=== PATIENT | male | born 1960 | race Caucasian/White ===

== ENCOUNTER → 2022-10-21 19:22 | Outpatient (CLI) | payer BC, SELFPAY ==
[2022-10-21 18:19] LABS: Basophils # 0.1 K/mm3 (0-0.2); Basophils % 1.1 % (0.1-2.0); Eosinophils # 0.2 K/mm3 (0.0-0.4); Eosinophils % 2.5 % (0.1-12.0); Hematocrit 50.5 % (42.0-52.0); Hemoglobin 16.3 g/dL (14.1-18.0); Lymphocytes % 34.1 % (10-50); Mean Corpuscular HGB Conc 32.3 g/dL (31.8-35.4); Mean Corpuscular Hemoglobin 30.7 pg (27.0-31.2); Mean Corpuscular Volume 95.1 fl (80-94); Mean Platelet Volume 9.5 fl (7.4-10.4); Monocytes # 0.4 K/mm3 (0.1-1.0); Monocytes % 7.5 % (1.7-9.3); Neutrophils # 3.2 K/mm3 (1.8-7.8); Neutrophils % 54.9 % (37.0-80.0); Platelet Count 186 K/mm3 (142-424); Red Blood Count 5.31 M/mm3 (4.60-6.20); Red Cell Distribution Width 13.3 % (11.5-17.5); White Blood Count 5.8 K/mm3 (4.8-10.8)
[2022-10-21 19:03] LABS: Hemoglobin A1C 8.7 % (4.0-6.0)
[2022-10-21 19:22] LABS: Alanine Aminotransferase 81 U/L (12-78); Albumin Level 4.5 g/dl (3.5-5.0); Albumin/Globulin Ratio 1.3 (1.1-1.8); Alkaline Phosphatase 80 U/L (38-126); Aspartate Amino Transferase 93 U/L (17-59); Bilirubin,Total 0.4 mg/dl (0.2-1.3); Blood Urea Nitrogen 15 mg/dl (9-20); Calcium 9.7 mg/dl (8.4-10.2); Carbon Dioxide 25 mmol/L (22.0-30.0); Chloride 106 mmol/L (98-107); Estimated Glomerular Filt Rate 115 ml/min (>60); GFR (African American) 140 ML/MIN (>60); Globulin 3.5 g/dL (1.3-3.2); Glucose 132 mg/dl (74-100); Sodium 138 mmol/L (136-145)
[2022-10-21 19:36] LABS: Microalbumin/Creatinine Ratio 22.4
[2022-10-21 19:37] LABS: Creatinine,Urine Random 54 mg/dL (Not Estab.)
[2022-10-21 19:38] LABS: 25-OH Vitamin D, Total 34.4 ng/mL (30-100)
[2022-10-21 19:51] LABS: Prostate Specific Ag Screen 1.2 ng/ml (0.0-4.0); Thyroid Stimulating Hormone 2.09 uIU/mL (0.465-4.68)
== END ==
PROVIDERS: PCP Nurse Practitioner; Visit Provider Nurse Practitioner
DX: I10 Essential (primary) hypertension (principal); E66.9 Obesity, unspecified; Z68.29 Body mass index [BMI] 29.0-29.9, adult; Z12.5 Encounter for screening for malignant neoplasm of prostate
CPT/HCPCS: 80053; 82043; 82306; 82570; 83036; 84443; 85025; G0103

== ENCOUNTER → 2022-11-18 07:50 | Outpatient (CLI) | payer BC, SELFPAY ==
--- NOTE | 2022-11-18 08:21 | US_ITS ---
FINAL REPORT TECHNIQUE: Multiple transverse and longitudinal images CLINICAL HISTORY: elevated liver enzymes FINDINGS: There are hypoechoic foci along the gallbladder wall, likely due to cholesterosis. No definite gallstones identified. No biliary ductal dilatation is appreciated. No fluid collections are seen. There is fatty infiltrated fusion of the liver. There are hypoechoic foci in the right kidney suspicious for nonobstructing stone disease. IMPRESSION: Fatty liver. Cholesterosis without definite gallstones. Reviewed, Interpreted and Dictated by Jacob Leal MD Transcribed by Catie Loja Authenticated and [facility]
== END ==
PROVIDERS: PCP Nurse Practitioner; Visit Provider Nurse Practitioner
DX: R06.02 Shortness of breath (principal); R07.9 Chest pain, unspecified; I10 Essential (primary) hypertension; R74.8 Abnormal levels of other serum enzymes
CPT/HCPCS: 76705; 93306

== ENCOUNTER 2022-12-02 14:20 | Inpatient (IN) | payer BC, SELFPAY ==
[2022-12-02] VITALS (18 sets, daily range): BP systolic 96–146; BP diastolic 40–87; PULSE 60–81; RESP 14–21; TEMP 36.8–36.9; O2SAT 93–98; BMI 35.9; BMI 27.1; BMI 28.0
--- NOTE | 2022-12-02 | CA_ITS ---
APPROVED REPORT Exam: Exercise Treadmill Technologist: Betzy Elam, Ht: 5 ft 11 in Wt: 210 lbs BSA: 2.15 m2 HR: 70 bpm BP: 169/77 mmHg Rhythm: NSR Medical History Medications: Lisinopril,,,,, Asa,,,,, BisOPROLOL,,,,, Cardiac Risk Factors: HTN, Smoking Stress Test Details Test: Thomas HR Resting HR: 75 bpm Max Heart Rate (APMHR): 160 bpm Max HR Achieved: 234 bpm Target HR (85% APMHR): 136 bpm % of APMHR: 146 Recovery HR: 130 bpm HR response to stress: Normal HR response to stress BP Resting BP: 176.0/85 mmHg Max BP: 182/86 mmHg Recovery BP: 141.0/79.0 mmHg BP response to stress: Normal blood pressure response to stress. ECG Resting ECG: Normal sinus rhythm with T-wave changes and Q-waves in the inferior leads. Stress ECG: ST-elevations in inferior leads and aVR, diffuse ST-depressions in remaining leads Recovery ECG: More prominent ST-elevations in inferior leads and aVR, diffuse ST-depressions in remaining leads Clinical Exercise duration: 05:46 min Highest Stage Achieved: Exercise capacity: 7.0 METs Stress ECG Conclusion During Thomas protocol pt walked total of 5:46 miniutes. The test was terminated due to dyspnea. No CP noted. The patient exhibited an average exercise capacity for age and sex. He had an adequate BP response to exercise. At peak stress, ocassional PAC and PVC were present. At peak stress and into recovery, ST elevation in inferior leads consistent with STEMI were present with reciprocal changes in the anterolateral leads. ST-elevation in aVR was also present. Findings consistent with STEMI, for which the [facility] catheterization lab was emergently activated. The patient was transferred in stable condition to the cardiac catheterization lab for emergent revaascularization. Test Summary REST . . . . . . . Sitting REST . . . . . . . Standing REST 05:05 0.0 0.0 75 . 176/ 85 . . Stage 1 01:00 10.0 1.7 100 . . . . Stage 1 02:00 10.0 1.7 112 . . . . Stage 1 03:00 10.0 1.7 122 . 182/ 86 . . Stage 2 01:00 12.0 2.5 132 . . . . Stage 2 02:00 12.0 2.5 144 . . . . Stage 2 02:46 12.0 2.5 154 . . . Stop exercise at 05:46 RECOVERY 01:00 0.0 0.0 135 . . . . RECOVERY 02:00 0.0 0.0 122 . 141/ 79 . . RECOVERY 03:00 0.0 0.0 108 . 141/ 79 . . RECOVERY 04:00 0.0 0.0 99 . 149/ 75 . . RECOVERY 05:00 0.0 0.0 96 . 164/ 81 . . RECOVERY 06:00 0.0 0.0 94 . 164/ 81 . . RECOVERY 07:00 0.0 0.0 97 . 164/ 81 . . RECOVERY 08:00 0.0 0.0 106 . 164/ 81 . . RECOVERY 09:00 0.0 0.0 102 . 164/ 81 . . RECOVERY 10:00 0.0 0.0 100 . 164/ 81 . . RECOVERY 11:00 0.0 0.0 98 . 142/ 96 . . RECOVERY 12:00 0.0 0.0 94 . 142/ 96 . . RECOVERY 13:00 0.0 0.0 93 . 142/ 96 . . RECOVERY 14:00 0.0 0.0 90 . 142/ 96 . . RECOVERY 15:00 0.0 0.0 0 . 142/ 96 . . Electronically signed by : Omaira Warner, 12/03/2022 01:15:47
--- NOTE | 2022-12-02 12:33 | NM_ITS ---
APPROVED REPORT Exam: Nuclear Stress Test Indication: HTN, C.P., SOB Patient Location: Outpatient Stress Tech: Betzy CHRISTIANSEN Tech:Colleen Hightower MARYBETH RT(R)(N) Ht: 5 ft 11 in Wt: 195 lbs HR: 75 bpm BP: 176/85 mmHg BSA: 2.09 m2 BMI: 27.1 History: HTN, C.P., SOB. ONLY REST IMAGES ARE AVAILABLE. AT PEAK EXERCISE AND INTO RECOVERY, THE PATIENT DEVELOPED ST-ELEVATIONS CONSISTENT WITH STEMI AND WAS TRANSFERRED EMERGENTLY TO THE CARDIAC THIN FILM TECHNICIAN. THEREFORE, STRESS IMAGES ARE NOT AVAILABLE. Procedure: Patient exercised on Thomas protocol 5:46 minutes and sec, resting heart rate 75 bpm, resting blood pressure 176/85 mmHg, with exercise maximum heart rate achived was 155 bpm which is 96 % of the maximum predicted heart rate and blood pressure was 182/86 mmHg. Test was stopped due to SOB. Patient denied any complaint of chest pain. Patient has average exercise capacity, achieved 7.0 METs of workload on treadmill, the blood pressure response to exercise was normal. Cardiac Stress and Resting SPECT Images: Cardiac Stress and Resting SPECT images were obtained using technetium 99m Myoview 32.9 mCi stress and 10.36 mCi at rest. Resting images were obtained. Stress images were not obtained as the patient developed ST-elevation during exercise and into recovery, resulting in activation of the cardiac cardiovascular lab director for STEMI. Resting images demonstrate a large-sized, moderate resting defect in the inferoseptal wall, as well as a medium-sized, moderate resting defect in the mid to apical anteroseptal LV wall. Gated images were not obtained. LVEF could not be calculated. Conclusion: Resting images were obtained. Stress images were not obtained as the patient developed ST-elevation during exercise and into recovery, resulting in activation of the cardiac cardiovascular lab director for STEMI. Resting images demonstrate a large-sized, moderate resting defect in the inferoseptal wall, as well as a medium-sized, moderate resting defect in the mid to apical anteroseptal LV wall. Gated images were not obtained. LVEF could not be calculated. Electronically signed by : Omaira Warner, 12/03/2022 01:24:02
--- NOTE | 2022-12-02 14:06 | IR_ITS ---
APPROVED REPORT Patient Location: Emergent Software Analyst: MARYBETH Wright RT (R) PROCEDURES Selective coronary angiogram Catheter placed in left subclavian artery Left subclavian artery angiogram with left internal mammary angiography INDICATION Acute ST elevation myocardial infarction, Abnormal stress test, Coronary artery disease, Preoperative evaluation for subclavian stenosis Informed consent was obtained prior to the procedure. COMPLICATIONS None Estimated Blood Loss: Less than 10 ML TECHNIQUE One percent lidocaine used to anesthetize the right anterior aspect of the wrist. The right radial artery was accessed via the Seldinger technique. A 6 [place] sheath was placed in the right radial artery. 150 mg magnesium sulfate, 800 mcg of nitroglycerin, 1mg Lidocaine and 5000 U Heparin were given through the arterial sheath. The papa catheter was also used to perform left selective coronary angiography. At the end the diagnostic angiogram the catheter was placed in the left subclavian artery where left subclavian artery angiography with left internal mammary angiography was performed. The apparatus was removed the sheath was removed good hemostasis was achieved using TR banding patient was transferred to the postop putting in stable ANGIOGRAPHIC RESULTS The left main artery Has an ostial 90% stenosis The left anterior descending artery Has a proximal 90% stenosis The circumflex artery Has a proximal eccentric 80% stenosis immediately distal to a small ramus intermedius. The remaining circumflex artery and obtuse marginal arteries are patent The right coronary artery Is an ostial 90% stenosis The PANG ventriculogram reveals Not performed The left ventricular end-diastolic pressure Not measured Left subclavian artery is widely patent as is the left internal mammary IMPRESSION Critical three-vessel coronary disease as described above Patent HEIN and subclavian artery PLAN 1. Start heparin drip 2. Start high intensity statin therapy 3. Patient be transferred to [facility] for surgical revascularization 4. Admit to [facility] while patient is awaiting transfer 5. Supportive care Electronically signed by : Steve Landry MD 12/02/2022 14:57:56
--- NOTE | 2022-12-02 14:26 | HMH.PHAINT1 ---
Pharmacy Intervention Comments: home medication list verified using list from primary care provider office
[2022-12-02 14:34] LABS: Blood Urea Nitrogen 18 mg/dl (9-20); Calcium 9.6 mg/dl (8.4-10.2); Carbon Dioxide 16 mmol/L (22.0-30.0); Chloride 99 mmol/L (98-107); Creatinine Clearance Estimated 109 mL/min (50-200); Estimated Glomerular Filt Rate 86 ml/min (>60); GFR (African American) 104 ML/MIN (>60); Glucose 137 mg/dl (74-100); Sodium 140 mmol/L (136-145)
--- NOTE | 2022-12-02 14:34 | EXP.CARD.CON ---
History of Present Illness History of Present Illness Consult date: 12/02/22 Requesting physician: Bryan Scott Consult reason: chest pain Chief complaint: chest pain History of present illness: This is a 62-year-old white gentleman who presented to the hospital to undergo Myoview stress testing today. During exercise on the treadmill the patient did have ST elevation with peak exercise and persisted in recovery. The patient also had chest pressure during peak exercise. There was no radiation of the pain. He rated this a 2 out of 10 in intensity. It was associated with shortness of breath. He denied any nausea or diaphoresis. The patient states that he has been having intermittent episodes of chest pressure with exertion. The patient was noted to have a STEMI on the treadmill and will be taken to the cardiac catheterization laboratory to undergo a left cardiac catheterization to evaluate his coronary artery disease. The patient denies any lower extremity edema. He denies any fever, chills, nausea, vomiting, diarrhea, PND orthopnea. [facility] Disclaimer: The information contained in this section may have been updated after the patient was seen, as this information can be updated by other users. Medical History (Updated 12/02/22 @ 14:38 by Esther Lord APRN) Chest pain Elevated liver enzymes Essential hypertension Lung cancer screening declined by patient Shortness of breath STEMI (ST elevation myocardial infarction) Type 2 diabetes mellitus without complications Social History Smoking Status: Former smoker how long ago did patient quit smokin yrs ago alcohol intake: current current occupational status: employed Travel in the last 8 weeks: Inside the [place] Review of Systems Review of Systems Review of systems:: pertinent systems reviewed and negative unless documented below Constitutional Constitutional: Reports system reviewed and no additional complaints, except as documented Eyes Eyes: Reports system reviewed and no additional complaints, except as documented ENT Ears, Nose, Mouth, and Throat: Reports system reviewed and no additional complaints, except as documented *Cardiovascular Cardiovascular: Reports system reviewed and no additional complaints, except as documented, Reports chest pain, Reports chest pain with activity and Reports dyspnea on exertion *Respiratory Respiratory: Reports system reviewed and no additional complaints, except as documented and Reports dyspnea on exertion *Gastrointestinal Gastrointestinal: Reports system reviewed and no additional complaints, except as documented *Genitourinary Genitourinary: Reports system reviewed and no additional complaints, except as documented *Musculoskeletal Musculoskeletal: Reports system reviewed and no additional complaints, except as documented Integumentary/Breasts Skin/Breast: Reports system reviewed and no additional complaints, except as documented *Neurologic Neurologic: Reports system reviewed and no additional complaints, except as documented Psychiatric Psychiatric: Reports system reviewed and no additional complaints, except as documented Endocrine Endocrine: Reports system reviewed and no additional complaints, except as documented Hematologic/Lymphatic Hematologic/Lymphatic: Reports system reviewed and no additional complaints, except as documented Allergic/Immunologic Allergic/Immunologic: Reports system reviewed and no additional complaints, except as documented Exam Data for Last 24 hours I & O for Last 24 hours: Intake & Output 11/29/22 11/30/22 12/01/22 12/02/22 23:59 23:59 23:59 23:59 Weight 195 lb Constitutional Constitutional: no acute distress and average body habitus *Routine HEENT Exam Head: Present normocephalic and atraumatic ENT: Present mucous membranes moist *Routine Neck Exam Neck: Present supple, full ROM and normal carotid upstroke; Absent JVD, carotid
[2022-12-02 14:42] LABS: Basophils # 0.1 K/mm3 (0-0.2); Basophils % 0.9 % (0.1-2.0); Eosinophils # 0.1 K/mm3 (0.0-0.4); Eosinophils % 1.2 % (0.1-12.0); Hemoglobin 15.9 g/dL (14.1-18.0); Lymphocytes # 3.8 K/mm3 (0.7-4.5); Lymphocytes % 39.1 % (10-50); Mean Corpuscular HGB Conc 33.2 g/dL (31.8-35.4); Mean Corpuscular Hemoglobin 31.6 pg (27.0-31.2); Mean Corpuscular Volume 95.2 fl (80-94); Mean Platelet Volume 8.7 fl (7.4-10.4); Monocytes # 0.5 K/mm3 (0.1-1.0); Monocytes % 5.4 % (1.7-9.3); Neutrophils # 5.1 K/mm3 (1.8-7.8); Neutrophils % 53.4 % (37.0-80.0); Platelet Count 228 K/mm3 (142-424); Red Blood Count 5.05 M/mm3 (4.60-6.20); White Blood Count 9.6 K/mm3 (4.8-10.8)
--- NOTE | 2022-12-02 15:18 | EXP.HP ---
History of Present Illness *Admission Date: 12/02/22 *Reason for visit:: STEMI *History of present illness: Davide Jaquez is a 62 year old male with a past medical history of type 2 diabetes mellitus, hypertension who had a STEMI while undergoing a treadmill stress test. He was emergently taken for cardiac catheterization which revealed 90% stenosis of an ostial branch from the left main artery, LAD with ostial 90% stenosis, left circumflex with proximal eccentric 80% stenosis and right coronary artery with ostial 90% stenosis. He currently is asymptomatic. He denies chest pain, palpitations and shortness of breath. [facility] Disclaimer: The information contained in this section may have been updated after the patient was seen, as this information can be updated by other users. Medical History (Updated 12/02/22 @ 16:33 by Bryan Scott MD) Chest pain Elevated liver enzymes Essential hypertension Lung cancer screening declined by patient Shortness of breath STEMI (ST elevation myocardial infarction) Type 2 diabetes mellitus without complications Social History Smoking Status: Former smoker how long ago did patient quit smokin yrs ago alcohol intake: current current occupational status: employed Travel in the last 8 weeks: [place] the [place] Review of Systems Review of Systems Review of systems:: pertinent systems reviewed and negative unless documented below *Neurologic Neurologic: Reports system reviewed and no additional complaints, except as documented Meds Home Medications and Allergies Home Medications Medication Instructions Recorded Confirmed Type blood sugar diagnostic (Blood #50 ea 11/11/22 11/25/22 Rx Glucose Test strips) blood-glucose meter (Blood Glucose #1 ea 11/11/22 11/25/22 Rx Monitoring kit) lancets #100 ea 11/11/22 11/25/22 Rx aspirin 81 mg tablet,delayed 81 mg PO DAILY Heart disease 12/02/22 12/02/22 History release (Adult Aspirin Regimen) bisoprolol fumarate 5 mg tablet 5 mg PO DAILY High blood pressure 12/02/22 12/02/22 History lisinopril 20 mg tablet 20 mg PO DAILY High blood pressure 12/02/22 12/02/22 History metformin 500 mg tablet,extended 500 mg PO DAILY Diabetes 12/02/22 12/02/22 History release 24 hr [id number] 1 tab PO DAILY Supplement 12/02/22 12/02/22 History tablet (Multivitamin 50 Plus tablet) New Prescriptions to Start Prescriptions: Allergies Allergy/AdvReac Type Severity Reaction Status Date / Time No Known Allergies Allergy Verified 11/25/22 08:39 Exam Data for Last 24 hours Vital signs and Labs for Last 24 Hours: Laboratory Results - last 24 hr 12/02/22 14:14: WBC 9.6, RBC 5.05, Hgb 15.9, Hct 48.0, MCV 95.2 H, MCH 31.6 H, MCHC 33.2, RDW 13.0, Plt Count 228, MPV 8.7, Neut % (Auto) 53.4, Lymph % (Auto) 39.1, [place] % (Auto) 5.4, Eos % (Auto) 1.2, Baso % (Auto) 0.9, Neut # (Auto) 5.1, Lymph # (Auto) 3.8, [place] # (Auto) 0.5, Eos # (Auto) 0.1, Baso # (Auto) 0.1 12/02/22 14:14: Sodium 140, Potassium 4.0, Chloride 99, Carbon Dioxide 16 L, Anion Gap 29.0 H, BUN 18, Creatinine 0.90, Estimated Creat Clear 109, Estimated GFR 86, Est GFR ( Amer) 104, Glucose 137 H, Calcium 9.6 I & O for Last 24 hours: Intake & Output 11/29/22 11/30/22 12/01/22 12/02/22 23:59 23:59 23:59 23:59 Weight 88.451 kg Constitutional Constitutional: no acute distress *Routine HEENT Exam Head: Present normocephalic Eye: Present EOMI and PERRL ENT: Present mucous membranes moist *Routine Neck Exam Neck: Present supple; Absent lymphadenopathy *Routine Respiratory Exam Respiratory: Present CTA bilaterally *Routine Cardiovascular Exam Cardiovascular: Present RRR *Routine Abdominal Exam Abdominal: Present soft and normoactive bowel sounds; Absent tenderness *Routine Rectal Exam Rectal:: deferred *Routine Genitalia Exam Genitalia:: deferred *Routine Extremities Exam Extremiti
--- NOTE | 2022-12-02 15:25 | P.CONPHA_ITS ---
[facility] Pharmacy Heparin Dosing Demographic Data Admission date:: 12/02/22 Date: 12/02/22 Time: 15:25 Allergies Allergy/AdvReac Type Severity Reaction Status Date / Time No Known Allergies Allergy Verified 11/25/22 08:39 Height: 1.8 m Weight: 88 kg Indication Medication therapy:: Heparin Current Indications:: stemi, awaiting transfer for CABG Current Active Problems (Updated 12/03/22 @ 10:03 by Esther Lord APRN) Obesity (Acute) STEMI (ST elevation myocardial infarction) (Acute) Type 2 diabetes mellitus without complications (Acute) Shortness of breath (Acute) Essential hypertension (Acute) CVA?: No Bleeding problem?: No Kidney disease?: No WV?: No Desired PTT range:: 50-75 seconds Comments:: 50-75 Labs Anticoagulation Lab Results:: 12/02/22 14:14 Hgb 15.9 Hct 48.0 Plt Count 228 Monitoring Dose Monitor 1: Date: 12/02/22 Time: 15:26 PTT Result:: drip started at 1200 units/hr (24ml/hr) per Dr Landry in calibration laboratory technician. No bolus given. No baseline PTT obtained. Infusion Rate:: 1200 units/hr Comment:: will draw PTT at 1530 to assess Dose Monitor 2: Date: 12/02/22 Time: 16:30 PTT Result:: ptt = 90.2 Infusion Rate:: decreased infusion rate to 1000 units/hr (20ml/hr) per protocol Comment:: another ptt ordered in 6 hours Dose Monitor 3: Date: 12/02/22 Time: 23:50 PTT Result:: ptt = 55.7 Infusion Rate:: infusion rate continued at 1000 units/hr (20mL/hr) Comment:: another ptt in 6 hours Dose Monitor 4: Date: 12/03/22 Time: 06:00 PTT Result:: ptt =53.9 Infusion Rate:: infusion rate will continue at 1000 units/hr (20mL/hr) Comment:: another ptt ordered in 6 hours Dose Monitor 5: Date: 12/03/22 Time: 12:30 PTT Result:: 45.9 Infusion Rate:: heparin bolus 3000 units given increased rate to 1150 units/hr (23ml/hr) Comment:: another ptt in 6 hours Dose Monitor 6: Date: 12/03/22 Time: 20:10 PTT Result:: 72.1 Infusion Rate:: rate continued at 1150units/hr Comment:: pt discarged to uk Core Measures Is INR > or = 2 at discharge?: No Most Recent Labs:: Laboratory Results - last 24 hr 12/02/22 14:14: WBC 9.6, RBC 5.05, Hgb 15.9, Hct 48.0, MCV 95.2 H, MCH 31.6 H, MCHC 33.2, RDW 13.0, Plt Count 228, MPV 8.7, Neut % (Auto) 53.4, Lymph % (Auto) 39.1, [place] % (Auto) 5.4, Eos % (Auto) 1.2, Baso % (Auto) 0.9, Neut # (Auto) 5.1, Lymph # (Auto) 3.8, [place] # (Auto) 0.5, Eos # (Auto) 0.1, Baso # (Auto) 0.1 12/02/22 14:14: Sodium 140, Potassium 4.0, Chloride 99, Carbon Dioxide 16 L, Anion Gap 29.0 H, BUN 18, Creatinine 0.90, Estimated Creat Clear 109, Estimated GFR 86, Est GFR ( Amer) 104, Glucose 137 H, Calcium 9.6 Were Heparin and Warfarin started on the same day?: No
--- NOTE | 2022-12-02 15:30 | PC.NURSE ---
[facility] stretcher [facility]
[2022-12-02 16:43] LABS: POC Glucose,Bedside 98 (70-110)
[2022-12-02 18:25] LABS: PTT Heparin (inpatient only) 90.2 Seconds (23.6-34.0)
--- NOTE | 2022-12-02 18:58 | PC.NURSE ---
Heparin gtt decreased from 1200 units to 1000 units per pharmacy. New PTT @ 6786. No complaints at this time. Family at bedside.
[2022-12-02 19:00] LABS: Coronavirus 19, PCR Not Detected (NotDetected); Influenza A, PCR Not Detected (NotDetected); Influenza B, PCR Not Detected (NotDetected)
[2022-12-02 20:37] LABS: POC Glucose,Bedside 86 (70-110)
[2022-12-03] VITALS (19 sets, daily range): BP systolic 102–131; BP diastolic 55–72; PULSE 50–71; RESP 16–20; TEMP 36.6–37.7; O2SAT 93–98; BMI 28.0
[2022-12-03 00:19] LABS: PTT Heparin (inpatient only) 55.7 Seconds (23.6-34.0)
--- NOTE | 2022-12-03 00:46 | PC.NURSE ---
Mercedez with [facility] states to keep Heparin at 1000u/hr. She will enter in order for next PTT
--- NOTE | 2022-12-03 05:24 | PC.NURSE ---
Heparin gtt continues at 1000u/hr. NSR on tele. 2 L nc for pt comfort satting in upper 90s. Pt has not voiced any c/o to staff. at bedside, call light within reach.
[2022-12-03 05:45] LABS: POC Glucose,Bedside 104 (70-110)
[2022-12-03 06:33] LABS: Basophils # 0.1 K/mm3 (0-0.2); Basophils % 0.9 % (0.1-2.0); Eosinophils # 0.2 K/mm3 (0.0-0.4); Eosinophils % 3.7 % (0.1-12.0); Hematocrit 46.5 % (42.0-52.0); Hemoglobin 15.2 g/dL (14.1-18.0); Lymphocytes # 2.3 K/mm3 (0.7-4.5); Lymphocytes % 40.2 % (10-50); Mean Corpuscular HGB Conc 32.7 g/dL (31.8-35.4); Mean Corpuscular Hemoglobin 30.8 pg (27.0-31.2); Mean Corpuscular Volume 94.2 fl (80-94); Mean Platelet Volume 8.6 fl (7.4-10.4); Monocytes # 0.4 K/mm3 (0.1-1.0); Monocytes % 6.5 % (1.7-9.3); Neutrophils # 2.8 K/mm3 (1.8-7.8); Neutrophils % 48.6 % (37.0-80.0); Platelet Count 155 K/mm3 (142-424); Red Blood Count 4.94 M/mm3 (4.60-6.20); Red Cell Distribution Width 13.2 % (11.5-17.5); White Blood Count 5.7 K/mm3 (4.8-10.8)
[2022-12-03 06:38] LABS: Alanine Aminotransferase 71 U/L (12-78); Albumin Level 4.1 g/dl (3.5-5.0); Alkaline Phosphatase 68 U/L (38-126); Aspartate Amino Transferase 73 U/L (17-59); Bilirubin,Indirect 0.5 mg/dL (0.0-0.9); Bilirubin,Total 0.5 mg/dl (0.2-1.3); Bilirubin,Unconjugated 0.6 mg/dL (0.0-1.1); Blood Urea Nitrogen 14 mg/dl (9-20); Carbon Dioxide 25 mmol/L (22.0-30.0); Chloride 102 mmol/L (98-107); Chol/HDL Ratio 5.3 (1-3.5); Cholesterol 207 mg/dl (140-200); Creatinine Clearance Estimated 144 mL/min (50-200); Estimated Glomerular Filt Rate 115 ml/min (>60); GFR (African American) 139 ML/MIN (>60); Glucose 113 mg/dl (74-100); HDL Cholesterol 39 mg/dl (40-60); Sodium 139 mmol/L (136-145); Total Protein,Serum 7.3 g/dl (6.3-8.2); Triglycerides 87 mg/dl (30-150); VLDL Cholesterol 17 mg/dL (0-40)
[2022-12-03 06:42] LABS: PTT Heparin (inpatient only) 53.9 Seconds (23.6-34.0)
[2022-12-03 06:49] LABS: Direct LDL Cholesterol 132.28 mg/dL (100-129)
[2022-12-03 08:29] LABS: Hemoglobin A1C 5.7 % (4.0-6.0)
--- NOTE | 2022-12-03 09:24 | PC.NURSE ---
Spoke with transfer center at and they stated they do not have any beds available and they will likely not have any today
--- NOTE | 2022-12-03 09:59 | EXP.CARD.PN ---
Subjective Subjective Date: 12/03/22 Time: 08:30 Principal diagnosis: STEMI Interval history: This is a 62-year-old white gentleman who presented to the hospital to undergo outpatient Myoview stress testing. During his treadmill portion of the stress test the patient did have ST elevation and was taken to the Utility System Repairer. The patient does have critical three-vessel disease and is awaiting transfer to [facility] for coronary artery bypass grafting. This morning he denies any chest pain or pressure. He denies any shortness of breath or edema. He denies any fever, chills, nausea, vomiting, diarrhea, PND orthopnea. He remains on heparin drip this morning. Exam Data for Last 24 hours Vital signs and Labs for Last 24 Hours: Temp Pulse Resp BP Pulse Ox 98.0 F 53 L 19 113/63 97 12/03/22 08:00 12/03/22 06:00 12/03/22 06:00 12/03/22 06:00 12/03/22 08:00 Laboratory Results - last 24 hr 12/02/22 14:14: WBC 9.6, RBC 5.05, Hgb 15.9, Hct 48.0, MCV 95.2 H, MCH 31.6 H, MCHC 33.2, RDW 13.0, Plt Count 228, MPV 8.7, Neut % (Auto) 53.4, Lymph % (Auto) 39.1, [place] % (Auto) 5.4, Eos % (Auto) 1.2, Baso % (Auto) 0.9, Neut # (Auto) 5.1, Lymph # (Auto) 3.8, [place] # (Auto) 0.5, Eos # (Auto) 0.1, Baso # (Auto) 0.1 12/02/22 14:14: Sodium 140, Potassium 4.0, Chloride 99, Carbon Dioxide 16 L, Anion Gap 29.0 H, BUN 18, Creatinine 0.90, Estimated Creat Clear 109, Estimated GFR 86, Est GFR ( Amer) 104, Glucose 137 H, Calcium 9.6 12/02/22 16:24: POC Glucose 98 12/02/22 16:30: APTT 90.2 H* 12/02/22 18:55: SARS-CoV-2 (PCR) Not detected, Influenza A Untype (PCR) Not detected, Influenza Type B (PCR) Not detected 12/02/22 20:25: POC Glucose 86 12/02/22 23:50: APTT 55.7 H* 12/03/22 05:37: POC Glucose 104 12/03/22 06:13: Hemoglobin A1c 5.7 D 12/03/22 06:13: WBC 5.7 D, RBC 4.94, Hgb 15.2, Hct 46.5, MCV 94.2 H, MCH 30.8, MCHC 32.7, RDW 13.2, Plt Count 155 D, MPV 8.6, Neut % (Auto) 48.6, Lymph % (Auto) 40.2, [place] % (Auto) 6.5, Eos % (Auto) 3.7, Baso % (Auto) 0.9, Neut # (Auto) 2.8, Lymph # (Auto) 2.3, [place] # (Auto) 0.4, Eos # (Auto) 0.2, Baso # (Auto) 0.1 12/03/22 06:13: Sodium 139, Potassium 4.0, Chloride 102, Carbon Dioxide 25, Anion Gap 16.0 H, BUN 14, Creatinine 0.70 D, Estimated Creat Clear 144, Estimated GFR 115, Est GFR ( Amer) 139 D, Glucose 113 H, Calcium 9.0, Total Bilirubin 0.5, Direct Bilirubin 0.0, Conjugated Bilirubin 0.0, Indirect Bilirubin 0.5, Unconjugated Bilirubin 0.6, AST 73 H, ALT 71, Alkaline Phosphatase 68, Total Protein 7.3, Albumin 4.1, Triglycerides 87, Cholesterol 207 H, LDL Cholesterol Direct 132.28 H, VLDL Cholesterol 17, HDL Cholesterol 39 L, Cholesterol/HDL Ratio 5.3 H 12/03/22 06:13: APTT 53.9 H* I & O for Last 24 hours: Intake & Output 11/30/22 12/01/22 12/02/22 12/03/22 23:59 23:59 23:59 23:59 Intake Total 240 / 240 338 / 338 Output Total 800 / 800 300 / 300 Balance -560 / -560 38 / 38 Weight 201 lb 8 oz 200 lb 8 oz Narrative: Telemetry strip is sinus rhythm. Constitutional Constitutional: no acute distress and average body habitus *Routine HEENT Exam Head: Present normocephalic and atraumatic ENT: Present mucous membranes moist *Routine Neck Exam Neck: Present supple, full ROM and normal carotid upstroke; Absent JVD, carotid bruit or lymphadenopathy *Routine Respiratory Exam Respiratory: Present CTA bilaterally, normal respiratory effort, able to speak in complete sentences and symmetric chest movement *Routine Cardiovascular Exam Cardiovascular: Present RRR, Normal S1 and Normal S2; Absent murmur or gallop *Routine Abdominal Exam Abdominal: Present soft and normoactive bowel sounds; Absent tenderness, distended or organomegaly *Routine Extremities Exam Extremities: Present full ROM, pulses intact and normal capillary refill; Absent cyanosis, clubbing or edema *Routine Skin Exam Skin: Present intact and warm; Absent erythema *Routine Neurological Exam Neurological: Present alert, oriented X3 and CN
--- NOTE | 2022-12-03 10:51 | EXP.PN ---
Subjective *Date: 12/03/22 *Time: 10:51 Interval history: No acute events overnight. No chest pain. No shortness of breath. No bleeding. Exam Data for Last 24 hours Vital signs and Labs for Last 24 Hours: Temp Pulse Resp BP Pulse Ox 98.0 F 60 19 113/63 97 12/03/22 08:00 12/03/22 08:00 12/03/22 06:00 12/03/22 06:00 12/03/22 08:00 Laboratory Results - last 24 hr 12/02/22 14:14: WBC 9.6, RBC 5.05, Hgb 15.9, Hct 48.0, MCV 95.2 H, MCH 31.6 H, MCHC 33.2, RDW 13.0, Plt Count 228, MPV 8.7, Neut % (Auto) 53.4, Lymph % (Auto) 39.1, [place] % (Auto) 5.4, Eos % (Auto) 1.2, Baso % (Auto) 0.9, Neut # (Auto) 5.1, Lymph # (Auto) 3.8, [place] # (Auto) 0.5, Eos # (Auto) 0.1, Baso # (Auto) 0.1 12/02/22 14:14: Sodium 140, Potassium 4.0, Chloride 99, Carbon Dioxide 16 L, Anion Gap 29.0 H, BUN 18, Creatinine 0.90, Estimated Creat Clear 109, Estimated GFR 86, Est GFR ( Amer) 104, Glucose 137 H, Calcium 9.6 12/02/22 16:24: POC Glucose 98 12/02/22 16:30: APTT 90.2 H* 12/02/22 18:55: SARS-CoV-2 (PCR) Not detected, Influenza A Untype (PCR) Not detected, Influenza Type B (PCR) Not detected 12/02/22 20:25: POC Glucose 86 12/02/22 23:50: APTT 55.7 H* 12/03/22 05:37: POC Glucose 104 12/03/22 06:13: Hemoglobin A1c 5.7 D 12/03/22 06:13: WBC 5.7 D, RBC 4.94, Hgb 15.2, Hct 46.5, MCV 94.2 H, MCH 30.8, MCHC 32.7, RDW 13.2, Plt Count 155 D, MPV 8.6, Neut % (Auto) 48.6, Lymph % (Auto) 40.2, [place] % (Auto) 6.5, Eos % (Auto) 3.7, Baso % (Auto) 0.9, Neut # (Auto) 2.8, Lymph # (Auto) 2.3, [place] # (Auto) 0.4, Eos # (Auto) 0.2, Baso # (Auto) 0.1 12/03/22 06:13: Sodium 139, Potassium 4.0, Chloride 102, Carbon Dioxide 25, Anion Gap 16.0 H, BUN 14, Creatinine 0.70 D, Estimated Creat Clear 144, Estimated GFR 115, Est GFR ( Amer) 139 D, Glucose 113 H, Calcium 9.0, Total Bilirubin 0.5, Direct Bilirubin 0.0, Conjugated Bilirubin 0.0, Indirect Bilirubin 0.5, Unconjugated Bilirubin 0.6, AST 73 H, ALT 71, Alkaline Phosphatase 68, Total Protein 7.3, Albumin 4.1, Triglycerides 87, Cholesterol 207 H, LDL Cholesterol Direct 132.28 H, VLDL Cholesterol 17, HDL Cholesterol 39 L, Cholesterol/HDL Ratio 5.3 H 12/03/22 06:13: APTT 53.9 H* I & O for Last 24 hours: Intake & Output 11/30/22 12/01/22 12/02/22 12/03/22 23:59 23:59 23:59 23:59 Intake Total 240 / 240 338 / 338 Output Total 800 / 800 300 / 300 Balance -560 / -560 38 / 38 Weight 91.399 kg 90.945 kg Constitutional Constitutional: no acute distress *Routine HEENT Exam Head: Present normocephalic Eye: Present EOMI and PERRL ENT: Present mucous membranes moist *Routine Neck Exam Neck: Present supple; Absent lymphadenopathy *Routine Respiratory Exam Respiratory: Present CTA bilaterally *Routine Cardiovascular Exam Cardiovascular: Present RRR *Routine Abdominal Exam Abdominal: Present soft and normoactive bowel sounds; Absent tenderness *Routine Extremities Exam Extremities: Absent cyanosis, clubbing or edema *Routine Skin Exam Skin: Present warm; Absent rash *Routine Neurological Exam Neurological: Present alert and oriented X3 Assessment and Plan *Assessment and plan (1) STEMI (ST elevation myocardial infarction): Status: Acute Qualifiers: Involved coronary artery: unspecified coronary artery Qualified Code(s): I21.3 - ST elevation (STEMI) myocardial infarction of unspecified site Category: Medical Code(s): I21.3 - ST elevation (STEMI) myocardial infarction of unspecified site (2) Type 2 diabetes mellitus without complications: Status: Acute Qualifiers: Diabetes mellitus shelter insulin use: without regional intermodal truck driver use Qualified Code(s): E11.9 - Type 2 diabetes mellitus without complications Category: Medical Code(s): E11.9 - Type 2 diabetes mellitus without complications (3) Essential hypertension: Status: Acute Category: Medical Code(s): I10 - Essential (primary) hypertension (4) Obesity: Status: Acute
--- NOTE | 2022-12-03 11:30 | PC.NURSE ---
pt weaned to RA
[2022-12-03 11:36] LABS: POC Glucose,Bedside 105 (70-110)
[2022-12-03 13:17] LABS: PTT Heparin (inpatient only) 45.9 Seconds (23.6-34.0)
[2022-12-03 16:50] LABS: POC Glucose,Bedside 91 (70-110)
--- NOTE | 2022-12-03 18:52 | PC.NURSE ---
Rounded on patient earlier in shift. No needs expressed, no pain reported. Call gan within reach.
[2022-12-03 20:37] LABS: POC Glucose,Bedside 118 (70-110)
[2022-12-03 20:45] LABS: PTT Heparin (inpatient only) 72.1 Seconds (23.6-34.0)
--- NOTE | 2022-12-03 20:48 | EXP.DC.SUM ---
General Admission date:: 12/02/22 Discharge date: 12/03/22 HPI HPI HPI: Davide Jaquez is a 62 year old male with a past medical history of type 2 diabetes mellitus, hypertension who had a STEMI while undergoing a treadmill stress test. He was emergently taken for cardiac catheterization which revealed 90% stenosis of an ostial branch from the left main artery, LAD with ostial 90% stenosis, left circumflex with proximal eccentric 80% stenosis and right coronary artery with ostial 90% stenosis. He currently is asymptomatic. He denies chest pain, palpitations and shortness of breath. Hospital Course Hospital Course Hospital Course: 1.? The patient had a STEMI while walking on the treadmill on 12/02.? He was taken to the cardiac Relay Tester Helper and was found to have critical three-vessel disease.? The patient is to be transfer to [facility] for CABG. 2.? Continue aspirin for his coronary artery disease. 3.? The patient's blood pressure is well controlled.? Continue bisoprolol and lisinopril. 4.? His LDL goal is less than 55.? His LDL is 132.? He has been started on high-dose statin. 5.? The patient is diabetic.? He will need aggressive control of his diabetes.? Will defer this to the hospitalist. 6.? Patient is on beta-elayne and JEANNETTE inhibitor post MS. 7.? Continue heparin drip for coronary disease and upcoming coronary artery bypass grafting. Exam Data for Last 24 hours Vital signs and Labs for Last 24 Hours: Temp Pulse Resp BP Pulse Ox 99.8 F H 64 20 113/61 93 L 12/03/22 20:00 12/03/22 18:00 12/03/22 18:00 12/03/22 18:00 12/03/22 18:00 Laboratory Results - last 24 hr 12/02/22 23:50: APTT 55.7 H* 12/03/22 05:37: POC Glucose 104 12/03/22 06:13: Hemoglobin A1c 5.7 D 12/03/22 06:13: WBC 5.7 D, RBC 4.94, Hgb 15.2, Hct 46.5, MCV 94.2 H, MCH 30.8, MCHC 32.7, RDW 13.2, Plt Count 155 D, MPV 8.6, Neut % (Auto) 48.6, Lymph % (Auto) 40.2, [place] % (Auto) 6.5, Eos % (Auto) 3.7, Baso % (Auto) 0.9, Neut # (Auto) 2.8, Lymph # (Auto) 2.3, [place] # (Auto) 0.4, Eos # (Auto) 0.2, Baso # (Auto) 0.1 12/03/22 06:13: Sodium 139, Potassium 4.0, Chloride 102, Carbon Dioxide 25, Anion Gap 16.0 H, BUN 14, Creatinine 0.70 D, Estimated Creat Clear 144, Estimated GFR 115, Est GFR ( Amer) 139 D, Glucose 113 H, Calcium 9.0, Total Bilirubin 0.5, Direct Bilirubin 0.0, Conjugated Bilirubin 0.0, Indirect Bilirubin 0.5, Unconjugated Bilirubin 0.6, AST 73 H, ALT 71, Alkaline Phosphatase 68, Total Protein 7.3, Albumin 4.1, Triglycerides 87, Cholesterol 207 H, LDL Cholesterol Direct 132.28 H, VLDL Cholesterol 17, HDL Cholesterol 39 L, Cholesterol/HDL Ratio 5.3 H 12/03/22 06:13: APTT 53.9 H* 12/03/22 10:40: POC Glucose 105 12/03/22 12:35: APTT 45.9 H 12/03/22 16:35: POC Glucose 91 12/03/22 20:26: POC Glucose 118 H I & O for Last 24 hours: Intake & Output 11/30/22 12/01/22 12/02/22 12/03/22 23:59 23:59 23:59 23:59 Intake Total 240 / 240 953 / 953 Output Total 800 / 800 500 / 500 Balance -560 / -560 453 / 453 Weight 91.399 kg 90.945 kg Constitutional Constitutional: no acute distress *Routine HEENT Exam ENT: Present mucous membranes moist *Routine Respiratory Exam Respiratory: Present CTA bilaterally *Routine Cardiovascular Exam Cardiovascular: Present RRR, Normal S1 and Normal S2 *Routine Abdominal Exam Abdominal: Present soft and normoactive bowel sounds *Routine Skin Exam Skin: Present intact Results Data Completed and Pending Labs on day of discharge: Labs from last 24 hours 12/03/22 12/03/22 12/03/22 20:26 16:35 12:35 WBC RBC Hgb Hct MCV MCH MCHC RDW Plt Count MPV Neut % (Auto) Lymph % (Auto) [place] % (Auto) Eos % (Auto) Baso % (Auto) Neut # (Auto) Lymph # (Auto) [place] # (Auto) Eos # (Auto) Baso # (Auto) APTT 45.9 H Sodium Potassium Chloride Carbon Dioxide Anion Gap BUN Creatinine Estimated Creat Clear Estimat
== END 2022-12-03 23:26 | disposition short-term general hospital (02) | DRG 282 ==
LOC: 2ND 14:20
PROVIDERS: Internal Medicine; Nurse Practitioner Family; Admitting Provider Internal Medicine; PCP Nurse Practitioner; Visit Provider Internal Medicine
PROC: 4A023N7 Measurement of Cardiac Sampling and Pressure, Left Heart, Percutaneous Approach (ICD-10-PCS; principal; 2022-12-02 14:15)
DX: I21.3 ST elevation (STEMI) myocardial infarction of unspecified site (principal); E11.9 Type 2 diabetes mellitus without complications; I10 Essential (primary) hypertension; I25.10 Atherosclerotic heart disease of native coronary artery without angina pectoris; Z87.891 Personal history of nicotine dependence; I25.2 Old myocardial infarction; Z79.82 Long term (current) use of aspirin; E66.9 Obesity, unspecified; Z68.28 Body mass index [BMI] 28.0-28.9, adult
CPT/HCPCS: 36415; 78451; 78452; 80048; 80061; 80076; 82962; 83036; 85025; 85730; 87636; 93017; 93455; 99152; A9502; C1725; C1769; C9803; J1644; Q9967; U0003; U0005

== ENCOUNTER → 2022-12-22 23:16 | Outpatient (CLI) | payer BC, SELFPAY ==
[2022-12-22 18:08] LABS: Chloride 104 mmol/L (98-107); Potassium 4.1 mmoL/L (3.5-5.1); Sodium 140 mmol/L (136-145)
[2022-12-22 18:11] LABS: Alanine Aminotransferase 35 U/L (12-78); Albumin Level 3.5 g/dl (3.5-5.0); Albumin/Globulin Ratio 1.1 (1.1-1.8); Alkaline Phosphatase 85 U/L (38-126); Anion Gap 17.1 mEq/L (5-15); Aspartate Amino Transferase 41 U/L (17-59); Bilirubin,Total 0.4 mg/dl (0.2-1.3); Blood Urea Nitrogen 11 mg/dl (9-20); Carbon Dioxide 23 mmol/L (22.0-30.0); Estimated Glomerular Filt Rate 137 ml/min (>60); GFR (African American) 166 ML/MIN (>60); Globulin 3.3 g/dL (1.3-3.2); Glucose 113 mg/dl (74-100); Total Protein,Serum 6.8 g/dl (6.3-8.2)
== END ==
PROVIDERS: PCP Nurse Practitioner; Visit Provider Nurse Practitioner
DX: E11.9 Type 2 diabetes mellitus without complications (principal); E78.5 Hyperlipidemia, unspecified; I10 Essential (primary) hypertension; R74.8 Abnormal levels of other serum enzymes; Z79.84 Long term (current) use of oral hypoglycemic drugs
CPT/HCPCS: 80053

== ENCOUNTER → 2023-01-20 23:00 | Outpatient (CLI) | payer BC, SELFPAY ==
[2023-01-20 19:07] LABS: Alanine Aminotransferase 33 U/L (12-78); Albumin Level 4.1 g/dl (3.5-5.0); Albumin/Globulin Ratio 1.2 (1.1-1.8); Alkaline Phosphatase 100 U/L (38-126); Anion Gap 13.6 mEq/L (5-15); Aspartate Amino Transferase 46 U/L (17-59); Bilirubin,Total 0.5 mg/dl (0.2-1.3); Blood Urea Nitrogen 16 mg/dl (9-20); Carbon Dioxide 26 mmol/L (22.0-30.0); Chloride 108 mmol/L (98-107); Cholesterol 120 mg/dl (140-200); Estimated Glomerular Filt Rate 115 ml/min (>60); GFR (African American) 139 ML/MIN (>60); Globulin 3.3 g/dL (1.3-3.2); Glucose 118 mg/dl (74-100); HDL Cholesterol 40 mg/dl (40-60); Potassium 4.6 mmoL/L (3.5-5.1); Sodium 143 mmol/L (136-145); Total Protein,Serum 7.4 g/dl (6.3-8.2); Triglycerides 97 mg/dl (30-150); VLDL Cholesterol 19 mg/dL (0-40)
[2023-01-20 19:18] LABS: Direct LDL Cholesterol 58.71 mg/dL (100-129)
[2023-01-20 20:01] LABS: Vitamin B12 541 pg/mL (239-931)
[2023-01-20 20:57] LABS: Hemoglobin A1C 5.5 % (4.0-6.0)
== END ==
PROVIDERS: PCP Nurse Practitioner; Visit Provider Nurse Practitioner
DX: I25.10 Atherosclerotic heart disease of native coronary artery without angina pectoris (principal); I10 Essential (primary) hypertension; E78.5 Hyperlipidemia, unspecified; E11.9 Type 2 diabetes mellitus without complications; Z79.84 Long term (current) use of oral hypoglycemic drugs
CPT/HCPCS: 80053; 80061; 82607; 83036

== ENCOUNTER 2023-11-17 09:48 | Outpatient (CLI) | payer BC, SELFPAY ==
[2023-11-17 10:20] LABS: Basophils # 0.1 K/mm3 (0-0.2); Basophils % 0.9 % (0.1-2.0); Eosinophils # 0.2 K/mm3 (0.0-0.4); Eosinophils % 2.5 % (0.1-12.0); Hematocrit 41.9 % (42.0-52.0); Hemoglobin 13.9 g/dL (14.1-18.0); Lymphocytes # 1.8 K/mm3 (0.7-4.5); Lymphocytes % 27.8 % (10-50); Mean Corpuscular HGB Conc 33.1 g/dL (31.8-35.4); Mean Corpuscular Hemoglobin 31.3 pg (27.0-31.2); Mean Corpuscular Volume 94.7 fl (80-94); Mean Platelet Volume 8.4 fl (7.4-10.4); Monocytes # 0.3 K/mm3 (0.1-1.0); Monocytes % 4.2 % (1.7-9.3); Neutrophils # 4.2 K/mm3 (1.8-7.8); Neutrophils % 64.6 % (37.0-80.0); Platelet Count 160 K/mm3 (142-424); Red Blood Count 4.43 M/mm3 (4.60-6.20); Red Cell Distribution Width 14.5 % (11.5-17.5); White Blood Count 6.5 K/mm3 (4.8-10.8)
[2023-11-17 10:46] LABS: Hemoglobin A1C 5.8 % (4.0-6.0)
[2023-11-17 10:53] LABS: Chloride 108 mmol/L (98-107); Potassium 4.7 mmoL/L (3.5-5.1); Sodium 144 mmol/L (136-145)
[2023-11-17 10:55] LABS: Blood Urea Nitrogen 18 mg/dl (9-20); Estimated Glomerular Filt Rate 115 ml/min (>60); GFR (African American) 139 ML/MIN (>60)
[2023-11-17 10:56] LABS: Alanine Aminotransferase 44 U/L (12-78); Albumin Level 3.9 g/dl (3.5-5.0); Alkaline Phosphatase 79 U/L (38-126); Anion Gap 12.7 mEq/L (5-15); Aspartate Amino Transferase 56 U/L (17-59); Bilirubin,Direct 0.3 mg/dl (0.0-0.4); Bilirubin,Indirect 0.2 mg/dL (0.0-0.9); Bilirubin,Total 0.5 mg/dl (0.2-1.3); Bilirubin,Unconjugated 0.3 mg/dL (0.0-1.1); Carbon Dioxide 28 mmol/L (22.0-30.0); Cholesterol 120 mg/dl (140-200); Glucose 104 mg/dl (74-100); Total Protein,Serum 6.5 g/dl (6.3-8.2); Triglycerides 48 mg/dl (30-150); VLDL Cholesterol 10 mg/dL (0-40)
[2023-11-17 10:57] LABS: Chol/HDL Ratio 1.7 (1-3.5); HDL Cholesterol 72 mg/dl (40-60)
[2023-11-17 11:09] LABS: Direct LDL Cholesterol 51.98 mg/dL (100-129)
[2023-11-17 11:12] LABS: Free T4 (Free Thyroxine) 0.76 ng/dl (0.78-2.19)
[2023-11-17 11:28] LABS: Thyroid Stimulating Hormone 1.95 uIU/mL (0.465-4.68)
== END 2023-11-17 23:59 | disposition home or self-care (01) ==
LOC: LAB 09:49
PROVIDERS: PCP Nurse Practitioner; Visit Provider Physician Assistant
DX: I11.9 Hypertensive heart disease without heart failure (principal); I25.10 Atherosclerotic heart disease of native coronary artery without angina pectoris; R06.00 Dyspnea, unspecified; E78.5 Hyperlipidemia, unspecified; E11.9 Type 2 diabetes mellitus without complications; K21.9 Gastro-esophageal reflux disease without esophagitis; E66.9 Obesity, unspecified; Z95.1 Presence of aortocoronary bypass graft; Z79.84 Long term (current) use of oral hypoglycemic drugs; Z87.891 Personal history of nicotine dependence; Z68.21 Body mass index [BMI] 21.0-21.9, adult
CPT/HCPCS: 36415; 80048; 80061; 80076; 83036; 84439; 84443; 85025

== ENCOUNTER 2023-11-24 10:20 | Outpatient (CLI) | payer BC, SELFPAY ==
[2023-11-24 18:31] LABS: Basophils # 0.1 K/mm3 (0-0.2); Basophils % 0.9 % (0.1-2.0); Eosinophils # 0.2 K/mm3 (0.0-0.4); Eosinophils % 2.6 % (0.1-12.0); Hematocrit 45.3 % (42.0-52.0); Hemoglobin 14.4 g/dL (14.1-18.0); Lymphocytes # 1.8 K/mm3 (0.7-4.5); Lymphocytes % 27.9 % (10-50); Mean Corpuscular HGB Conc 31.7 g/dL (31.8-35.4); Mean Corpuscular Hemoglobin 30.9 pg (27.0-31.2); Mean Corpuscular Volume 97.5 fl (80-94); Mean Platelet Volume 9.8 fl (7.4-10.4); Monocytes # 0.3 K/mm3 (0.1-1.0); Monocytes % 4.9 % (1.7-9.3); Neutrophils # 4.1 K/mm3 (1.8-7.8); Neutrophils % 63.8 % (37.0-80.0); Platelet Count 175 K/mm3 (142-424); Red Blood Count 4.65 M/mm3 (4.60-6.20); Red Cell Distribution Width 14.1 % (11.5-17.5); White Blood Count 6.4 K/mm3 (4.8-10.8)
[2023-11-24 18:56] LABS: 25-OH Vitamin D, Total 43.3 ng/mL (30-100)
[2023-11-24 19:04] LABS: Prostate Specific Ag Screen 0.6 ng/ml (0.0-4.0)
[2023-11-24 19:23] LABS: Vitamin B12 735 pg/mL (239-931)
[2023-11-24 20:09] LABS: Creatinine,Urine Random 78 mg/dL (Not Estab.); Iron 130 ug/dL (49-181)
[2023-11-24 20:11] LABS: Microalbumin/Creatinine Ratio 94.8
[2023-11-24 20:18] LABS: Total Iron Binding Capacity 348 ug/dL (261-462)
[2023-11-24 21:57] LABS: Ferritin 74.2 ng/ml (17.9-464)
== END 2023-11-24 23:59 | disposition home or self-care (01) ==
LOC: LAB.DROPOF 11-25 10:20
PROVIDERS: PCP Nurse Practitioner; Visit Provider Nurse Practitioner
DX: I10 Essential (primary) hypertension (principal); D64.9 Anemia, unspecified; R63.4 Abnormal weight loss; E11.9 Type 2 diabetes mellitus without complications; Z79.899 Other long term (current) drug therapy
CPT/HCPCS: 82043; 82306; 82570; 82607; 82728; 83540; 83550; 85025; 85044; G0103

== ENCOUNTER 2023-12-08 10:04 | Outpatient (CLI) | payer BC, SELFPAY | END 2023-12-08 23:59 | disposition home or self-care (01) | LOC: LAB 10:05 | PROVIDERS: PCP Nurse Practitioner; Visit Provider Internal Medicine Medical Oncology | DX: D64.9 Anemia, unspecified (principal) | CPT/HCPCS: 36415; 82746 ==

== ENCOUNTER 2024-06-07 07:38 | Outpatient (CLI) | payer BC, SELFPAY ==
--- NOTE | 2024-06-07 07:43 | CA_ITS ---
APPROVED REPORT EXAM: Comprehensive 2D, Doppler, and color-flow Echocardiogram Security Manager: Rosanne Carolina RDCS Ht: 145 ft 10 in Wt: 155lbs BSA: 19.32 BP: 145/65 mmHg Indications: CAD,CABG,H/O PA M-Mode Dimensions RVDd 2.31 cm (0.9-2.6) LA Diam 3.93 cm (1.9-4.0) LVDd 5.03 cm (3.5-5.7) LVDs 3.37 cm (3.5-5.7) IVSd 0.64 cm (0.6-1.1) PWd 0.76 cm (0.6-1.1) EF (Teich) 61.30% FS 33.00% EDV (Teich) 119.90 mL TAPSE 1.91 (<1.7) ESV (Teich) 46.40 mL LV Diastology E Decel Time 220 (160-240 msec) E/A Ratio 1.5 Mitral Valve MV E Max Fausto. 95.0 (40-130 cm/s) MV A Velocity 65.0 (40-130 cm/s) E/A Ratio 1.47 MV PHT 64.0 ms Left Ventricle The left ventricle is normal size. The left ventricular systolic function is normal. The left ventricular ejection fraction is within the normal range. There is normal left ventricular wall thickness. There is normal LV segmental wall motion. The left ventricular diastolic function is normal. LVEF is 55%. Right Ventricle The right ventricle is normal size. The right ventricular systolic function is normal. Atria Left atrium is mildly dilated. Right atrium is mildly dilated. There is no Doppler evidence of interatrial shunt. Aortic Valve The aortic valve opens well. There is no aortic valvular stenosis. No aortic regurgitation is present. Mitral Valve The mitral valve is normal in structure. No evidence of mitral valve stenosis. Mild mitral regurgitation. Tricuspid Valve Tricuspid valve is grossly normal in structure and function. Mild tricuspid regurgitation. RVSP is normal. Pulmonic Valve The pulmonary valve is normal in structure. Trace pulmonic regurgitation. Great Vessels The aortic root is normal in size. The ascending aorta is not well-visualized. IVC is normal in size and collapses >50% with inspiration. Pericardium There is no pericardial effusion. Other Information Study Quality: Fair Conclusion Normal biventricular systolic function. Mild biatrial dilation. Mild TR. Electronically signed by : Omaira Warner MD 06/18/2024 23:11:18
== END 2024-06-07 23:59 | disposition home or self-care (01) ==
PROVIDERS: PCP Nurse Practitioner; Visit Provider Physician Assistant
DX: I10 Essential (primary) hypertension (principal); I25.10 Atherosclerotic heart disease of native coronary artery without angina pectoris; Z95.1 Presence of aortocoronary bypass graft
CPT/HCPCS: 93306

== ENCOUNTER 2024-11-14 08:57 | Outpatient (CLI) | payer BC, SELFPAY ==
[2024-11-14 18:32] LABS: Basophils # 0.1 K/mm3 (0-0.2); Basophils % 1.2 % (0.1-2.0); Eosinophils # 0.2 Kmm3 (0.0-0.4); Eosinophils % 3.1 % (0.1-12.0); Hematocrit 40.2 % (42.0-52.0); Hemoglobin 13.3 g/dL (14.1-18.0); Immature Granulocytes # 0.02 10^3uL; Immature Granulocytes % 0.3 %; Lymphocytes # 1.5 K/mm3 (0.7-4.5); Lymphocytes % 25.9 % (10-50); Mean Corpuscular HGB Conc 33.1 g/dL (31.8-35.4); Mean Corpuscular Hemoglobin 30.7 pg (27.0-31.2); Mean Corpuscular Volume 92.8 fl (80-94); Monocytes # 0.4 K/mm3 (0.1-1.0); Monocytes % 6.8 % (1.7-9.3); Neutrophils # 3.7 K/mm3 (1.8-7.8); Neutrophils % 62.7 % (37.0-80.0); Nucleated Red Blood Cells # 0 10^3/uL; Nucleated Red Blood Cells % 0 %; Platelet Count 181 K/mm3 (142-424); Red Blood Count 4.33 M/mm3 (4.60-6.20); Red Cell Distribution Width 13.3 % (11.5-17.5); Red Cell Distribution Width-SD 45.9 fL; White Blood Count 5.9 K/mm3 (4.8-10.8)
[2024-11-14 18:40] LABS: Microalbumin/Creatinine Ratio 79.5
[2024-11-14 19:09] LABS: Creatinine,Urine Random 70 mg/dL (Not Estab.)
[2024-11-14 19:31] LABS: Alanine Aminotransferase 26 U/L (12-78); Albumin Level 4.3 g/dl (3.5-5.0); Albumin/Globulin Ratio 1.7 (1.1-1.8); Alkaline Phosphatase 66 U/L (38-126); Aspartate Amino Transferase 34 U/L (17-59); Bilirubin,Total 0.5 mg/dl (0.2-1.3); Blood Urea Nitrogen 14 mg/dl (9-20); Calcium 9.6 mg/dl (8.4-10.2); Carbon Dioxide 29 mmol/L (22.0-30.0); Chloride 111 mmol/L (98-107); Chol/HDL Ratio 1.9 (1-3.5); Cholesterol 103 mg/dl (140-200); Estimated Glomerular Filt Rate 137 ml/min (>60); GFR (African American) 166 ML/MIN (>60); Globulin 2.5 g/dL (1.3-3.2); Glucose 96 mg/dl (74-100); HDL Cholesterol 53 mg/dl (40-60); Sodium 141 mmol/L (136-145); Total Protein,Serum 6.8 g/dl (6.3-8.2); Triglycerides 57 mg/dl (30-150); VLDL Cholesterol 11 mg/dL (0-40)
[2024-11-14 19:42] LABS: Direct LDL Cholesterol 30.77 mg/dL (100-129)
[2024-11-14 20:23] LABS: HIV Combo NEGATIVE (Negative)
[2024-11-14 20:26] LABS: Vitamin B12 781 pg/mL (239-931)
[2024-11-14 21:59] LABS: Thyroid Stimulating Hormone 2.01 uIU/mL (0.465-4.68)
[2024-11-14 22:28] LABS: Hemoglobin A1C 5.2 % (4.0-6.0)
[2024-11-14 23:09] LABS: Hepatitis C Ab Qual. W/ RFX NEGATIVE (Negative)
== END 2024-11-14 23:59 | disposition home or self-care (01) ==
LOC: LAB.DROPOF 11-15 11:45
PROVIDERS: PCP Nurse Practitioner; Visit Provider Nurse Practitioner
DX: E78.5 Hyperlipidemia, unspecified (principal); E11.9 Type 2 diabetes mellitus without complications; I10 Essential (primary) hypertension; I25.10 Atherosclerotic heart disease of native coronary artery without angina pectoris; Z95.1 Presence of aortocoronary bypass graft; Z13.0 Encounter for screening for diseases of the blood and blood-forming organs and certain disorders involving the immune mechanism; Z12.5 Encounter for screening for malignant neoplasm of prostate; Z53.20 Procedure and treatment not carried out because of patient's decision for unspecified reasons
CPT/HCPCS: 80053; 80061; 82043; 82570; 82607; 83036; 84443; 85025; 86803; 87389

== ENCOUNTER 2025-01-13 13:51 | Outpatient (CLI) | payer BC, SELFPAY ==
--- NOTE | 2025-01-13 13:52 | XR_ITS ---
PROCEDURE INFORMATION: Exam: XR Right Foot Exam date and time: 01/13/2025 1:54 PM Age: 64 years old Clinical indication: Pain; Foot; Right; Additional info: Stepped on splinter, redness swelling TECHNIQUE: Imaging protocol: Radiologic exam of the right foot. Views: 3 or more views. COMPARISON: No relevant prior studies available. FINDINGS: Bones/joints: There is no evidence of acute fracture or dislocation. Joint spaces appear preserved. Mild degenerative changes involve the tarsometatarsal joints. Calcaneal spurs are demonstrated at the origin of the plantar fascia and the insertion of the Achilles tendon. Soft tissues: There is mild soft tissue prominence involving the plantar soft tissues of the mid to distal foot which may reflect edema/inflammation/cellulitis. No subcutaneous emphysema. No definite radiopaque foreign bodies. No subcutaneous emphysema or radiopaque foreign bodies. IMPRESSION: 1. No acute posttraumatic osseous injury. 2. Soft tissue prominence involving the plantar soft tissues of the mid to distal foot which may reflect edema/inflammation/cellulitis.
--- OUTSIDE RECORDS SUMMARY | 2025-01-13 13:54 | XMS_ITS | Clinical Summary ---
Author Organization Healthcare Address [address] [place] [address] Care Team Providers Care Pickler Helper Name Role Phone Steve Landry MD Unavailable [phone] Adilene Burr APRN Primary Care Provider [phone] Allergies No known active allergies Medications metFORMIN XR (Glucophage-XR) 500 MG 24 hr tablet Take 1 tablet (500 mg) by mouth 1 (one) time each day. Do not crush, chew, or split. Active Multiple Vitamins-Minera ls (Multivitamin Adults 50+) tablet Take 1 tablet by mouth 1 (one) time each day. Active aspirin 81 MG EC tablet Take 1 tablet (81 mg) by mouth 1 (one) time each day. 60 tablet 3 3 Active acetaminophen (Tylenol) 500 MG tablet Take 2 tablets (1,000 mg) by mouth every 6 (six) hours. 100 tablet 3 Active docusate sodium 100 MG capsule Take 100 mg by mouth 2 (two) times a day if needed for constipation. 20 capsule 3 Active Additional Information Patient not taking.Reported on 01/06/2023 methocarbamol (Robaxin) 500 MG tablet Take 2 tablets (1,000 mg) by mouth 4 (four) times a day for 10 days. 80 tablet 3 Active furosemide (Lasix) 40 MG tablet Take 1 tablet (40 mg) by mouth 1 (one) time each day for 3 days. 3 tablet 3 Active atorvastatin (Lipitor) 80 MG tablet Take 1 tablet (80 mg) by mouth every night. 30 tablet 3 3 Active Metoprolol Tartrate 37.5 MG tablet Take 37.5 mg by mouth 3 (three) times a day. 90 tablet 3 3 Active Active Problems Problem Noted Date Diagnosed Date Overweight (BMI 25.0-29.9) 12/18/2022 Coronary artery disease 12/02/2022 Mild mitral regurgitation 11/09/2022 Controlled type 2 diabetes m ellitus, without long-term current use of insulin 11/09/2022 Mixed hyperlipidemia 11/09/2022 Hypertriglyceridemia 11/09/2022 Hypercholesteremia 11/09/2022 Primary hypertension 11/09/2022 Atrioventricular block, first degree 11/09/2022 Tobacco abuse, in remission 11/09/2022 Resolved Problems Problem Noted Date Diagnosed Date Resolved Date Leukocytosis 12/10/2022 12/14/2022 Overview (12/10/2022): Continue to monitor Acute respiratory failure with hypoxia 12/10/2022 12/14/2022 Overview (12/11/2022): Intubated during operation Currently on high flow nasal canula Continue to wean Thrombocytopenia 12/06/2022 12/18/2022 Stenosis of right carotid artery 12/05/2022 12/13/2022 STEMI (ST elevation myocardial infarction) 11/09/2022 12/11/2022 Dyspnea on exertion 11/09/2022 12/15/19 Systemic primary arterial hypertension 11/09/2022 12/14/2022 Sinus bradycardia 11/09/2022 12/14/2022 Immunizations Immunization Administration Dates Next Due Moderna COVID-19 Vaccine (Side Boss) 12+ years ,03/01/2021 Social History Tobacco Use Types Packs/Day Years Used Date Smoking Tobacco: Former Cigarettes 1 33 1 - 2012 Smokeless Tobacco: Never Tobacco Cessation:Counseling Given: Not Answered Comments:Patient does not want counseling. CAGE ASSESSMENT Answer Date Recorded Cage unable to access Not on file 12/04/2022 Cage max number of drinks Not on file 2022 Cage Beverages a week Not on file 12/04/2022 Have you ever felt you should CUT down on your d rinking? 0 12/04/2022 Have you been ANNOYED by people criticizing your drinking? 0 12/04/2022 Have you felt GUILTY about your drinking? 0 12/04/2022 Have you had a drink first t yobany in the morning (EYE-GRINDING WHEEL FACER) to steady your nerves or to get rid of a hangover? 0 12/04/2022 CAGE Questionnaire Score 0 023 Sex and Gender Information Value Date Recorded Sex Assigned at Not on file Legal Sex Male 10:55 AM EDT Gender Identity Not on file Sexual Orientation Not on file Last Filed Vital Signs Vital Sign Reading Time Taken Comments Blood Pressure 164/75 01/06/2023 11:11 AM EDT Pulse 90 01/06/2023 11:11 AM EDT Temperature 36.7 C (98.1 F) 12/14/2022 11:40 AM EDT Respiratory Rate 20 12/14/2022 11:40 AM EDT Oxygen Saturation 98% 01/06/2023 11:11 AM EDT Inhaled Oxygen Concentration - - Weight 83.9 kg (185 lb) 01/06/2023 11:11 AM EDT Height 177.8 cm (5' 10 ) 01/06/2023 11:11 AM EDT Body Mass Index 26.54 01/06/2023 11:11 AM EDT Plan of Treatment Health Maintenance Due Date Last Done Comments [facility]-Depression Screening 1962 [facility]-HIV Screening 1962 [facility]-Hepatitis C Screening 1962 [facility]-/Child/Adol SDOH Screenings 1962 Diabetes: Dental Exam 1972 [facility]- SDOH Screenings 1980 [facility]-Adult SDOH Screenings 1980 [facility]-DTaP,Tdap,and Td Vaccine s (1 - Tdap) 1981 [facility]-Pneumococcal Vaccine: 50 + Years (1 of 2 - PCV) 1981 CT Colonography 11/19/2007 Colonoscopy 11/19/2007 FIT-DNA 11/19/2007 FIT 11/19/2007 FOBT 11/19/2007 Sigmoidoscopy 11/19/2007 [facility]-Colorectal Cancer Screening 11/19/2007 [facility]-Lung Cancer Screening 2012 [facility]-Zoster Vaccines (1 of 2) 2012 [facility]-Diabetes: Hemoglobin A1C 06/03/2023 12/04/2022 [id number] Vaccine ( - season) 2024 03/29/2021, 03/01/2021 [facility]-Influenza Vaccine (Seaso n Ended) 2025 [facility]-RSV Vaccine: 60+ Years o r (1 - 1-dose 75+ series) 2037 [facility]-Obesity Intervention Completed 01/06/2023 HPV Vaccines Aged Out No longer eligi ble based on patient's age to complete this topic [facility]-HIB Vaccines Aged Out No longer e ligible based on patient's age to complete this topic [facility]-Hepatitis A Vaccines Aged Out No longer eligible based on patient's age to complete this topic [facility]-IPV Vaccines Aged Out No longer e ligible based on patient's age to complete this topic [facility]-Rotavirus Vaccines Aged Out No lo nger eligible based on patient's age to complete this topic Procedures Procedure Name Priority Date/Time Associated Diagnosis Comments HEMOGLOBIN A1C Routine 12/04/2022 12:50 AM EDT from Last 3 Months or Most Recently Relevant to Health Maintenance Results * Hemoglobin A1c (12/04/2022 12:50 AM EDT) Hemoglobin A1c 5.6 <5.7 % 12/04/2022 3:14 AM EDT [facility] Blood Venous blood specimen / Unknown Venipuncture / Unknown 12/04/2022 12:50 AM EDT 12/04/2022 1:33 AM EDT Narrative [facility] - 12/04/2022 3:14 AM EDT HA1C Interpretive Data: Diagnosis of Diabetes: Diabetic > or = 6.5% Pre-diabetic 5.7 to 6.4% Non-diabetic < or = 5.6% Glycemic Targets for Type I and Type II Diabetics: Non- Adults <7.0% Adults <6.0% Children and Adolescents <7.5% Source: [place] [employer]. Standards of medical care in diabetes,2017. Diabetes Care.2017:40 (suppl 1):S1-S135. HbA1c assay performed by an ion-exchange chromatography method that is certified traceable to the DCCT. us Kike Forrester MD LAB BLOOD ORDERABLES Final [facility] [address] [place] [address] from Last 3 Months or Most Recently Relevant to Health Maintenance Insurance ANTHEM Advance Directives * Full Code (Latest Code Status on File) Date Activated Date Inactivated Comments 12/10/2022 12:36 PM 12/14/2022 5:35 PM Question Answer Comments Patient has decision-making capacity? Yes * Full Code Date Activated Date Inactivated Comments 12/03/2022 11:09 PM 12/10/2022 12:36 PM Question Answer Comments Patient has decision-making capacity? Yes Care Teams Pickler Helper Relationship Specialty Start Date End Date Adilene Burr APRN [address] [place] [address] PCP - General 10/10/22 Steve Landry MD [address] [facility] [address] [place] [address] Referring Physician Cardiology 12/02/22
== END 2025-01-13 23:59 | disposition home or self-care (01) ==
LOC: RAD 13:52
PROVIDERS: PCP Nurse Practitioner; Visit Provider Nurse Practitioner
DX: R93.6 Abnormal findings on diagnostic imaging of limbs (principal); M79.671 Pain in right foot; R60.9 Edema, unspecified; L53.9 Erythematous condition, unspecified
CPT/HCPCS: 73630

== ENCOUNTER 2025-01-17 13:45 | Outpatient (CLI) | payer BC, SELFPAY ==
--- OUTSIDE RECORDS SUMMARY | 2025-01-18 13:45 | XMS_ITS | Clinical Summary ---
Author Organization Healthcare Address [address] [place] [address] Care Team Providers Care Cutter And Edge Trimmer Name Role Phone Steve Landry MD Unavailable [phone] Adilene Burr APRN Primary Care Provider [phone] Allergies No known active allergies Medications metFORMIN [...] Administration Dates Next Due Moderna COVID-19 Vaccine (Documentation Spec) 12+ years ,03/01/2021 Social History Tobacco Use [...] drink first t yobany in the morning (EYE-INDUSTRIAL REHABILITATION CONSULTANT) to steady your nerves or to get [...] [facility]-HIV Screening 1962 [facility]-Hepatitis C Screening 1962 [facility]-Infant/Child/Adol SDOH Screenings 1962 Diabetes: Dental Exam 1972 [...] 2) 2012 [facility]-Diabetes: Hemoglobin A1C 06/03/2023 12/04/2022 [id number] Vaccine (3 - 2023- season) 2024 03/29/2021, 03/01/2021 [facility]-Influenza Vaccine (#1) 2025 [facility]-RSV Vaccine: 60+ Years o r [...] that is certified traceable to the DCCT. Kike Forrester MD LAB BLOOD ORDERABLES Final R [facility] [address] [place] [address] from Last 3 Months or Most Recently [...] Patient has decision-making capacity? Yes Care Teams Cutter And Edge Trimmer Relationship Specialty Start Date End Date Adilene Burr APRN [address] [place] [address] PCP - General 10/10/22 Steve Landry MD [address] [address] Referring Physician Cardiology 12/02/22
== END 2025-01-17 23:59 | disposition home or self-care (01) ==
LOC: LAB.DROPOF 01-18 13:44
PROVIDERS: PCP Podiatrist; Visit Provider Podiatrist
DX: L03.115 Cellulitis of right lower limb (principal); S91.331A Puncture wound without foreign body, right foot, initial encounter
CPT/HCPCS: 87070; 87205

== ENCOUNTER 2025-01-31 13:34 | Outpatient (CLI) | payer BC, SELFPAY ==
--- OUTSIDE RECORDS SUMMARY | 2025-01-31 13:35 | XMS_ITS | Clinical Summary ---
Author Organization Healthcare Address [address] [place] [address] Care Team Providers Care Sharepoint Architect Name Role Phone Steve Landry MD Unavailable [phone] Adilene Burr APRN Primary Care Provider [phone] Allergies No known active allergies Medications metFORMIN [...] Administration Dates Next Due Moderna COVID-19 Vaccine (Insurance Claim Approver) 12+ years ,03/01/2021 Social History Tobacco Use [...] drink first t yobany in the morning (EYE-COMPLIANCE PROJECT MANAGER) to steady your nerves or to get [...] 2) 2012 [facility]-Diabetes: Hemoglobin A1C 06/03/2023 12/04/2022 [id number] Vaccine (3 - 2023- season) 2024 03/29/2021, [...] Adults <6.0% Children and Adolescents <7.5% Source: [place] [employer]. Standards of medical care in diabetes,2017. Diabetes Care.2017:40 (suppl 1):S1-S135. HbA1c assay performed by an ion-exchange chromatography method that is certified traceable to the DCCT. Kike Forrester MD LAB BLOOD ORDERABLES Final R [facility] [address] [place] [address] from Last 3 Months or Most Recently [...] Patient has decision-making capacity? Yes Care Teams Sharepoint Architect Relationship Specialty Start Date End Date Adilene Burr APRN [address] [place] [address] PCP - General 10/10/22 Steve Landry MD [address] [address] Referring Physician Cardiology 12/02/22
[2025-01-31 13:54] LABS: Hematocrit 38.3 % (42.0-52.0); Hemoglobin 13.0 g/dL (14.1-18.0); Immature Granulocytes % 0.3 %; Mean Corpuscular HGB Conc 33.9 g/dL (31.8-35.4); Mean Corpuscular Hemoglobin 30.8 pg (27.0-31.2); Mean Corpuscular Volume 90.8 fl (80-94); Nucleated Red Blood Cells % 0 %; Platelet Count 156 K/mm3 (142-424); Red Blood Count 4.22 M/mm3 (4.60-6.20); Red Cell Distribution Width-SD 43.4 fL; White Blood Count 6.6 K/mm3 (4.8-10.8)
[2025-01-31 13:59] LABS: Alanine Aminotransferase 28 U/L (12-78); Albumin Level 4.2 g/dl (3.5-5.0); Albumin/Globulin Ratio 1.4 (1.1-1.8); Alkaline Phosphatase 73 U/L (38-126); Anion Gap 10.2 mEq/L (5-15); Aspartate Amino Transferase 49 U/L (17-59); Bilirubin,Total 0.6 mg/dl (0.2-1.3); Blood Urea Nitrogen 14 mg/dl (9-20); Calcium 9.7 mg/dl (8.4-10.2); Carbon Dioxide 27 mmol/L (22.0-30.0); Chloride 108 mmol/L (98-107); Creatinine,Serum 0.60 mg/dl (0.66-1.25); Estimated Glomerular Filt Rate 137 ml/min (>60); GFR (African American) 165 ML/MIN (>60); Globulin 2.9 g/dL (1.3-3.2); Glucose 90 mg/dl (74-100); Potassium 4.2 mmoL/L (3.5-5.1); Sodium 141 mmol/L (136-145); Total Protein,Serum 7.1 g/dl (6.3-8.2)
--- NOTE | 2025-01-31 14:15 | CT_ITS ---
FINAL REPORT TECHNIQUE: Postcontrast axial imaging of the right foot was obtained. Reformatted images were also obtained and reviewed. This study was performed with techniques to keep radiation doses as low as reasonably achievable (ALARA). Individualized dose reduction techniques using automated exposure control or adjustment of mA and/or kV according to the patient's size were employed. CLINICAL HISTORY: evalute for abscess, possible foreign body FINDINGS: There is no bone destruction seen. There are mild degenerative changes. Edema and soft tissue swelling is seen along the plantar aspect of the first MTP joint which may indicate localized cellulitis. There are 2 densities within the subcutaneous tissues in this region measuring 2 mm which could represent small foreign bodies or calcifications. This is best seen on coronal images 29 and 30 of series 601. IMPRESSION: No osteomyelitis or gas in the soft tissues. Possible foreign bodies versus calcifications in the plantar first MTP joint region with significant surrounding edema/cellulitis. Reviewed, Interpreted and Dictated by Jacob Leal MD Transcribed by Jennifer Sow Authenticated and [facility]
[2025-01-31] MEDS: IOPAMIDOL-370 (76%);100ML BOTTLE 100 ML IV (14:42)
[2025-01-31] MEDS: SODIUM CHLORIDE 0.9% 10ML SYR (RAD ONLY) 10 ML IV (14:42)
[2025-01-31 15:13] LABS: C-Reactive Protein < 0.3 mg/L (0-4)
--- NOTE | 2025-01-31 15:15 | US_ITS ---
FINAL REPORT CLINICAL HISTORY: decreased pedal pulses/other skin changes of LE,WOUND RT FOOT,CAD,EX--SMOKER FINDINGS: LOWER EXTREMITY SEGMENTAL PRESSURE MEASUREMENTS FINDINGS: Pressure indices are as follows: RIGHT LOWER EXTREMITY: Thigh: 1.03 Calf: 0.98 Ankle, posterior tibial artery: 1.00 Ankle, dorsalis pedis: 1.03 Toe: 0.70 KAITLIN: 1.03 Comments: Within normal limits LEFT LOWER EXTREMITY: Thigh: 1.26 Calf: 0.89 Ankle, posterior tibial artery: 0.93 Ankle, dorsalis pedis: 0.9 Toe: 0.58 KAITLIN: 0.93 Comments: Low-normal IMPRESSION: No evidence of peripheral vascular disease in the bilateral lower extremities. Reviewed, Interpreted and Dictated by Jacob Leal MD Transcribed by Susy Dudley Authenticated and [facility]
[2025-01-31 15:36] LABS: Hemoglobin A1C 5.6 % (4.0-6.0)
== END 2025-01-31 23:59 | disposition home or self-care (01) ==
LOC: RAD 13:34
PROVIDERS: PCP Nurse Practitioner; Visit Provider Podiatrist
DX: L03.115 Cellulitis of right lower limb (principal); R93.6 Abnormal findings on diagnostic imaging of limbs; R60.0 Localized edema; S91.341A Puncture wound with foreign body, right foot, initial encounter; E11.9 Type 2 diabetes mellitus without complications
CPT/HCPCS: 36415; 73702; 80053; 83036; 85025; 85651; 86140; 93923; Q9967

== ENCOUNTER 2025-02-21 09:28 | Day surgery (SDC) | payer BC, SELFPAY ==
[2025-02-20 12:58] VITALS: BMI 21.5
[2025-02-21] VITALS (9 sets, daily range): BP systolic 118–158; BP diastolic 61–86; PULSE 53–59; RESP 12–18; TEMP 36.4–36.7; O2SAT 96–99; BMI 21.5
[2025-02-21] MEDS: 0.9 % SODIUM CHLORIDE 1000ML 1,000 ML 25 ML IV (11:08)
[2025-02-21 12:01] LABS: POC Glucose,Bedside 75 (70-110)
--- NOTE | 2025-02-21 12:45 | P.PNANES_ITS ---
[facility] Disclaimer: The information contained in this section may have been updated after the patient was seen, as this information can be updated by other users. Medical History Pre-operative cardiovascular examination Cellulitis Coronary artery disease Screening for malignant neoplasm of colon declined (~11/14/24) Weight loss Anemia ASCVD (arteriosclerotic cardiovascular disease) Hyperlipidemia STEMI (ST elevation myocardial infarction) Type 2 diabetes mellitus without complications Elevated liver enzymes Lung cancer screening declined by patient (~11/14/24) Shortness of breath Chest pain Essential hypertension Surgical History S/P CABG (coronary artery bypass graft) S/P cardiac cath Family History Other No significant family history Social History (Updated 02/20/25 @ 12:55 by Bryan Abbasi RN) Smoking Status: Former smoker how long ago did patient quit smokin yrs ago alcohol intake: never substance use type: denies use current occupational status: employed Travel in the last 8 weeks?: [place] [facility] Anesthesia Checklist Patient Identification Patient Identification: Arm Band and Verbal (Name & ) Structural Data Admitted From: Home Planned Operative Procedure/s: Right foot I and D Verified Documents: Surgical Consent NPO Status Verified Time NPO: 00:00 Additional verifications Anesthesia Reactions: No Hx Blood Transfusions: No Blood Transfusion Reaction: No Airway Assessment Mallampati Score:: Class II C-Spine Mobility Assessed: Yes TMJ Mobility Assessed: Yes Dentition: Good Dentition Neurological Assessment Level of Consciousness: Awake, Alert and Appropriate Hx Seizures: No Numbness or tingling in extremities: No Anesthesia Plan Anesthesia Risk discussed: Yes Anesthesia Plan: Verified ASA Class: II Anesthesia Type: MAC
[2025-02-21] MEDS: LEVOFLOXACIN/D5W 500 MG/100 ML PIGGYBACK 100 MG IV (15:08)
[2025-02-21] MEDS: CLINDAMYCIN PHOSPHATE/D5W 900 MG/50 ML PIGGYBACK 100 MG IV (15:08)
[2025-02-21] MEDS: GENTAMICIN 80 MG/2 ML VIAL (15:46)
--- NOTE | 2025-02-21 16:13 | P.OP_ITS ---
Date of procedure: 02/21/25 Pre-op Diagnosis:: Right foot puncture wound with foreign body Right hallux ingrown toenail Rigth 1st MTPJ bursa, synovitis Post-op Diagnosis:: Same Procedure performed:: Right foot incision and drainage Foreign body removal Right irrigation and debridement with 1st MTPJ synovectomy, bursa excision Right hallux partial nail avulsion with phenol Surgeon:: Michelle Justice DPM Anesthesia: local (20cc 0.5% marcaine plain) and LMA Estimated blood loss (mL): 10 Clinical Note:: Pre-op Indications: Patient is a 64-year-old diabetic male who sustained a puncture wound. He was [place] [facility], started on clindamycin. He continued to have pain/symptoms so was started on clinda plus Levaquin and topical mupirocin to cover for MRSA and potential Pseudomonas. He completed course of oral antibiotics which helped with symptoms. Patient continued to have pain to the foot. Right foot CT scan and ABIs were obtained. CT does show foreign body along the plantar first MTPJ with significant surrounding edema/cellulitis. ABIs show no evidence of peripheral vascular disease however the TBI's were low, 0.58 on the left and 0.70 on the right. Patient was sent to cardiology who determined no further PVD workup was necessary and cardiac clearance granted. Labs, ABIs and new images were discussed with the patient. Patient does work at [employer] and has to return to work. Discussed low TBI plus returning to work/increased weight bearing could c ause delay in skin healing, increased risk of wound dehiscence, infection and gangrene. We discussed conservative versus surgical treatment options. We discussed conservative care including continued oral vs IV antibiotics and local wound care versus surgical incision and drainage, foreign body removal. Due to pain, swelling the patient wants to proceed with surgery. Patient understands that he could have wound healing complications including delayed healing and infection. We discussed that if the wound does not heal, it is possible that they may need further debridement. Patient understands if infection spreads into the bone, it may warrant proximal amputation and could result in further loss of digits, loss of partial foot or loss of leg. We discussed the risks and benefits in great detail. Other surgical risks include: Incomplete removal of foreign body, prolonged pain and swelling, prolonged/permanent pain/swelling, further infection requiring oral or IV antibiotics, delay in healing of soft tissue or bone, nerve or blood vessel damage, CRPS/RSD, DVT/PE, anesthesia complications, and even . All questions answered. Patient verbalized understanding. Verbal and written consent obtained. Operative findings:: Right hallux ingrown with localized edema and minimal erythema to the medial > lateral toenail border. Right subfirst metatarsal has thick callused skin with localized edema. No open wound or drainage. The prior puncture wound site had healed over. Incision was made over the plantar subfirst MTPJ. Within the pl shayla tissue there was a large over 1.5 cm piece of wood splinter consistent with puncture wound on the wood deck. The piece of foreign body was removed in total. Inflammatory tissue and first MTPJ bursitis noted. Sharp excisional full- thickness debridement of the synovitic and bursal tissue with 15 blade, sent for pathology specimen. Wound flushed and reexplored and no deep signs of infection noted. Operative note:: On this date and time patient was deemed an appropriate surgical candidate. With informed consent signed, the patient was taken to the operating theater. The patient was positioned supine. LMA anesthesia was induced. No tourniquet was applied. The right extremity was prepped and draped in normal sterile fashion. Pre-op right foot block given with 10cc 0.5% marcaine plain. IV Clinda, Levo infused. Right foot incision and drainage: No foreign body was visible on the x-ray. CT confirmed foreign body. Bone intact with no evidence of fracture or dislocations or osteomyelitis. Attention was directed to the plantar forefoot where prior healed over puncture wound was noted. Lazy S incision mapped out. Dissection was carried through the skin, subcutaneous tissue into/including deep fascia with care taken to maintain surgical hemostasis and safely retract neurovascular structures. Right foreign body (wood) removal: The foreign body was visible overlying the deep fascia of the 1st MTPJ joint bursa/capsule. Using a mixture of sharp and blunt and dissection technique the wood was isolated. It was removed en total and sent to path. Right foot irrigation and debridement with 1st MTPJ synovectomy, bursa excision: Inflammed synovitic and bursal tissue was sharply debrided as above and a piece was sent to pathology. The wound was flushed with copious amounts of normal sterile saline mixed with gentamicin irrigation. Bleeding controlled without electrocautery. Wound was reexplored and no more wood/splinter noted. There were no signs of deep infection. The wound was once again flushed with copious amounts of saline. Vicryl was also used to reapproximate the subcutaneous tissue. Nylon was then used to reapproximate the skin in a vertical mattress fashion. The wounds were cleansed. Xeroform, dry sterile dressing was then applied to the right foot. Right hallux b/l border, partial nail avulsion (PNA) with phenol: A local anesthetic block was given into the hallux and forefoot with 10mL's of 2% Lidocaine plain under asceptic technique. No digital tourniquet was placed around the big toe. At this time an elevator, hemostat, and Danish anvil were used to remove the medial and lateral border of the big toenail. A curette was used to explore the border an ensure that all of the nail was removed. No pur ulence noted. Once the offending nail border was removed approximately 3 applications of phenol for 30 seconds each were applied to the nail border. This was then flushed with saline. Capillary refill time was at baseline to the hallux. At this time antibiotic ointment and band-aide applied. Patient appeared to tolerate procedure and anesthesia well without complication. The patient was awoken from anesthesia and transferred to recovery with vital signs stable and neurovascular status intact. Discharge/Plan: Ok to discharge home today when vss. Patient is to maintain dressing clean dry and intact to right foot surgical site. Change right hallux toenail/band-aide site daily with mupirocin ointment and a Band-Aid. Elevate on two pillows. Minimize activity. Protected partial weight bearing to the right heel/foot in the fracture boot. Recommend using crutches or rolling knee scooter to reduce pressure to the forefoot to prevent wound dehiscence and wound healing complications. Take oral Bactrim postop as directed. Follow up in one week for incision and skin check. Condition: stable Disposition: same day Specimens:: Right foot bursa Right foreign body (wood splinter) Complications:: None
--- NOTE | 2025-02-21 16:14 | EXP.ANES.I ---
[facility] Anesthesia Record Part I Anesthesia Record I Intake, IV Amount: 900 Hydration: Adequate Estimated blood loss (mL): 15 Urine output (mL): 0 Blood Products used (#): none Blood Pressure: 122/61 SaO2: 96 Pulse Rate: 56 Airway Patency: Patent Respiratory Rate: 12 Temperature: 97.6 F Patient is:: Drowsy and Stable Stable to PACU at:: 16:07
--- NOTE | 2025-02-22 08:47 | P.PNANES_ITS ---
[facility] Anesthesia Record Part II Anesthesia Record Part II Discharge Time: 16:37 Destination: Surgical Day Care (OP Surgery) PACU nurse assessment reviewed?: Yes Patient Condition:: Good Anesthesia Complications:: None Swallowing reflex intact?: Yes Airway Patency: Patent Cyanosis?: No Blood Pressure: 118/71 SaO2: 98 Respiratory Rate: 16 Pulse Rate: 58 Temperature: 98.1 F Mental Status: Alert & Oriented Pain level:: 0 Nausea and/or vomitting:: None Intake, IV Amount: 0 Hydration: Adequate
[2025-02-22 08:49] VITALS: BP 118/71; PULSE 58; RESP 16; TEMP 36.7; O2SAT 98
== END 2025-02-21 17:18 | disposition home or self-care (01) ==
PROVIDERS: Visit Provider Podiatrist
PROC: (CPT 11750; principal; 2025-02-21 11:00)
DX: L03.115 Cellulitis of right lower limb (principal); S91.331D Puncture wound without foreign body, right foot, subsequent encounter; L60.0 Ingrowing nail; E11.9 Type 2 diabetes mellitus without complications; I10 Essential (primary) hypertension; R09.89 Other specified symptoms and signs involving the circulatory and respiratory systems; I25.10 Atherosclerotic heart disease of native coronary artery without angina pectoris; E78.5 Hyperlipidemia, unspecified; I25.2 Old myocardial infarction; Z95.5 Presence of coronary angioplasty implant and graft; M71.371 Other bursal cyst, right ankle and foot
CPT/HCPCS: 11750; 28045; 28192; 11730; 82962; 96374; J0665; J0736; J1580; J1956; J2003; J2250; J2704; J3010; J7030